=== PATIENT | female | born 1995 | race Two or more races ===

== ENCOUNTER 2019-12-23 17:09 | Emergency (ER) | payer MEDICAID ==
[~2019-12-23] VITALS: Ht 152.4 cm; Wt 52.2 kg
--- NOTE | 2019-12-23 17:20 | NUR ---
PT [id number] SLEEPING UNDER A TREE IN FRONT OF [place], +ETOH SMELL, PT IS AAOX2, NOT IN RESPIRATORY DISTRESS, HOOKED TO IDENTIFICATION TECHNICIAN, KEPT RESTED AND COMFORTABLE, WILL CONTINUE TO MONITOR.
--- NOTE | 2019-12-23 17:30 | NUR ---
SEEN AND EXMAINED BY LAURA JENKINS
[2019-12-23] MEDS ORDERED: OLANZAPINE 10 MG VIAL IM ONE ×2 (17:35→18:00)
--- NOTE | 2019-12-23 17:50 | NUR ---
URINE SPECIMEN COLLECTED AND SENT TO LAB.
[2019-12-23] MEDS ORDERED: IV NS 0.9% 1,000 ML BAG IV ONE (18:00)
[2019-12-23 18:07] LABS: APPEARANCE,URINE Clear (CLEAR); BILIRUBIN,URINE Negative (NEGATIVE); BLOOD, URINE Negative Ery/uL (NEGATIVE); COLOR,URINE Yellow (YELLOW); KETONES,URINE Negative (NEGATIVE); LEUKOCYTE ESTERASE ,URINE Negative (NEGATIVE); NITRITE, URINE Negative (NEGATIVE); PH,URINE 5.5 (5.0-8.0); PROTEIN,URINE Negative (NEGATIVE); UGLUCOSE Negative (NEGATIVE); UROBILINOGEN,URINE 0.2 EU/dL (0.2)
--- NOTE | 2019-12-23 18:24 | NUR ---
PT IS WHEELED TO CT SCAN VIA [facility].
[2019-12-23 18:29] LABS: BASOPHILS % (AUTO) 1.3 % (0.0-2.0); EOSINOPHILS % (AUTO) 0.3 % (0.0-6.0); HEMATOCRIT 35 % (33-45); HEMOGLOBIN 11.8 g/dL (11.5-14.8); LYMPHOCYTES # (AUTO) 1.2 /CMM (0.8-4.8); LYMPHOCYTES % (AUTO) 36.3 % (20.0-44.0); MEAN CORPUSCULAR HGB CONC 34 g/dl (31.0-36.0); MEAN CORPUSCULAR VOLUME 89 fL (82-100); MONOCYTES # (AUTO) 0.2 /CMM (0.1-1.30); MONOCYTES % (AUTO) 5.1 % (2.0-12.0); NEUTROPHILS # (AUTO) 1.9 /CMM (1.8-8.9); PLATELET COUNT (AUTO) 247 /CMM (150-450); RED BLOOD CELL COUNT(AUTO) 3.96 MIL/uL (4.0-5.2); WHITE BLOOD COUNT (AUTO) 3.3 K/uL (4.3-11.0)
[2019-12-23 18:54] LABS: CARBON DIOXIDE 24 mmol/L (21-32); CHLORIDE 107 mmol/L (98-107); CREATININE 0.5 mg/dL (0.6-1.3); GLUCOSE 97 mg/dL (74-106); POTASSIUM 3.5 mmol/L (3.5-5.1); SODIUM SERUM 143 mmol/L (136-145); UREA NITROGEN, BLOOD 6 mg/dL (7-18)
[2019-12-23 19:02] LABS: ALANINE AMINOTRANSFERASE 30 U/L (12-78); ALBUMIN 3.7 g/dL (3.4-5.0); ALCOHOL, BLOOD 335 mg/dL (0-0); ALKALINE PHOSPHATASE 89 U/L (46-116); ASPARTATE AMINOTRANSFERASE 24 U/L (15-37); BILIRUBIN,TOTAL 0.2 mg/dL (0.2-1.0)
[2019-12-23 19:05] LABS: ACETAMINOPHEN < 2 ug/ml (10-30); SALICYLATE 0.8 mg/dL (2.8-20.0)
--- NOTE | 2019-12-23 22:31 | NUR ---
PATIENT AMBULATED TO THE RESTROOM WITH A STEADY GAIT.
--- NOTE | 2019-12-24 02:01 | NUR ---
PT ASLEEP, NO ACUTE DISTRESS NOTED, RESP EVEN AND UNLABORED. CALL LIGHT WITHIN REACH. WILL CONTINUE TO MONITOR PT CLOSELY. 1:1SITTER AT BEDSIDE.
--- NOTE | 2019-12-24 03:19 | NUR ---
PT ASLEEP, NO ACUTE DISTRESS NOTED, RESP EVEN AND UNLABORED. CALL LIGHT WITHIN REACH. WILL CONTINUE TO MONITOR PT CLOSELY. 1:1SITTER AT BEDSIDE.
--- NOTE | 2019-12-24 04:36 | NUR ---
PT AAOX4 NO ACUTE DISTRESS NOTED, RESP EVEN AND UNLABORED. PT AMBULATORY TO THE BATHROOM WITH STEADY GAIT NOTED. PT DENIES SI/HI. ER MD MADE AWARE.
--- NOTE | 2019-12-24 05:59 | NUR ---
Patient discharged to home in stable condition. Written and verbal after care instructions given. Patient verbalizes understanding of instruction. ambulatory with a steady gait. pt aaox4 no acute distress noted, resp even and unlabored. advice pt not to drive or operate any machinery due to alcohol intoxication.
[2019-12-24 06:01] VITALS: BP 121/63
== END 2019-12-24 06:02 | disposition home or self-care (01) ==
LOC: ER 17:20
DX: F10.129 Alcohol abuse with intoxication, unspecified (principal); Y90.8 Blood alcohol level of 240 mg/100 ml or more
CPT/HCPCS: 36415; 70450; 72125; 80048; 80076; 80305; 80307; 80329; 81001; 82962; 84703; 85025; 96372; 99285; G0480; J3490; J7030; 81000-TC